=== PATIENT | male | born 1975 | race African-American/Black ===

== ENCOUNTER 2018-01-03 20:29 | Emergency (ER) | payer BC ==
[2018-01-03] MEDS ORDERED: ONDANSETRON ODT 4 MG TAB (6 TAB/ER DISP) PO PRN (20:48)
[2018-01-03] MEDS ORDERED: BUTALB/ACETAMINOPHEN/CAFFEINE 1 TAB EACH PO ONE (20:48)
--- NOTE | 2018-01-03 20:49 | ER Document Report ---
ED Medical Screen (RME) - General Chief Complaint: Headache Stated Complaint: MIGRAINE Time Seen by Provider: 01/03/18 20:47 Notes: Patient presents with migraine headache. He states normally the headache will go away with PC powders but he has had this headache for 3 days and has not gone away. He states he has had migraine headaches since he was 14 years old. He states he has never come to the hospital for a headache before. He states he never has had any kind of MRI or CT scan. TRAVEL OUTSIDE OF THE [place] IN LAST 30 DAYS: No - Related Data Allergies/Adverse Reactions: No Known Drug Allergies Adverse Reaction (Verified 10/21/15 03:17) Past Medical History - Social History Chew tobacco use (# tins/day): No Frequency of alcohol use: None Drug Abuse: None Pulmonary Medical History: Reports: Hx Bronchitis - last month Renal/ Medical History: Denies: Hx Peritoneal Dialysis Past Surgical History: Reports: Hx Oral Surgery - wisdom, Hx Orthopedic Surgery - Arthroscopic knee - Immunizations Hx Diphtheria, Pertussis, Tetanus Vaccination: Yes Physical Exam - Vital signs Vitals: Temp Pulse Resp BP Pulse Ox 98.0 F 74 16 131/83 H 96 01/03/18 20:38 01/03/18 20:38 01/03/18 20:38 01/03/18 20:38 01/03/18 20:38 Course - Vital Signs Vital signs: Temp Pulse Resp BP Pulse Ox 98.0 F 74 18 131/83 H 96 01/03/18 20:38 01/03/18 20:47 01/03/18 20:47 01/03/18 20:47 01/03/18 20:47
[2018-01-03] MEDS ORDERED: ONDANSETRON 4 MG TAB.RAPDIS ONE (20:57)
--- NOTE | 2018-01-03 21:33 | RADIOLOGY REPORT (SQ) ---
EXAM DESCRIPTION: CT HEAD WITHOUT COMPLETED DATE/TIME: 01/03/2018 9:23 pm REASON FOR STUDY: kaminski COMPARISON: None. TECHNIQUE: Axial images acquired through the brain without intravenous contrast. Images reviewed wi th bone, brain and subdural windows. Additional sagittal and coronal reconstructions were generated. Images stored on PACS. All CT scanners at this facility use dose modulation, iterative reconstruction, and/or weight based d osing when appropriate to reduce radiation dose to as low as reasonably achievable (ALARA). [facility]: Dose Right [facility]: CareDose [facility]: Dose Right [facility]: Teradose 4D [facility]: Profista RADIATION DOSE: CT Rad equipment meets quality standard of care and radiation dose reduction techniq ues were employed. CTDIvol: 53.2 mGy. DLP: 1017 mGy-cm. mGy. LIMITATIONS: None. FINDINGS: VENTRICLES: Normal size and contour. CEREBRUM: No masses. No hemorrhage. No midline shift. No evidence for acute infarction. Normal gra y/white matter differentiation. No areas of low density in the white matter. CEREBELLUM: No masses. No hemorrhage. No alteration of density. No evidence for acute infarction. EXTRAAXIAL SPACES: No fluid collections. No masses. ORBITS AND GLOBE: No intra- or extraconal masses. Normal contour of globe without masses. CALVARIUM: No fracture. PARANASAL SINUSES: No fluid or mucosal thickening. SOFT TISSUES: No mass or hematoma. OTHER: No other significant finding. IMPRESSION: NORMAL BRAIN CT WITHOUT CONTRAST. EVIDENCE OF ACUTE STROKE: NO. COMMENT: Quality ID # [id number]: Final reports with documentation of one or more dose reduction techniques (e.g., Automated exposure control, adjustment of the mA and/or kV according to patient size, use of iterative reconstruction technique) TECHNICAL DOCUMENTATION: JOB ID: [id number] [employer]- All Rights Reserved Reading location - IP/workstation name: [email or web address]
[2018-01-03] MEDS ORDERED: KETOROLAC TROMETHAMINE INJ/PF 30 MG/1 ML SDV IV ONE (21:55)
[2018-01-03] MEDS ORDERED: ONDANSETRON HCL INJ/PF 4 MG/2 ML SDV IV ONE (21:55)
[2018-01-03] MEDS ORDERED: NORMAL SALINE 1000 ML 1,000 ML IV ONE (21:55)
--- NOTE | 2018-01-03 21:58 | ER Document Report ---
ED Headache - General Chief Complaint: Headache Stated Complaint: MIGRAINE Time Seen by Provider: 01/03/18 20:47 Mode of Arrival: Ambulatory Information source: Patient TRAVEL OUTSIDE OF THE [place] IN LAST 30 DAYS: No - HPI Patient complains to provider of: Headache, "Migraine" Onset: Other - 3 days Onset was: Gradual Timing: Still present Quality of pain: Achy, Dull, Pressure, Throbbing Severity: Moderate Pain Level: 4 Associated symptoms: Nausea/vomiting Exacerbated by: Light Similar symptoms previously: Yes Recently seen / treated by doctor: No Notes: Patient is a 42-year-old male presenting to the emergency room complaining of headache 3 days, reports a history of migraines in the past but this 1 is worse than usual and will not go away with his typical treatments at home, he does report nausea with no vomiting, bright lights are bothersome, pain is not resolved after receiving p.o. meds in the emergency department, he denies any fevers today, no head injury, no neck stiffness - Related Data Allergies/Adverse Reactions: No Known Drug Allergies Adverse Reaction (Verified 10/21/15 03:17) Past Medical History - General Information source: Patient - Social History Smoking Status: Never Smoker Chew tobacco use (# tins/day): No Frequency of alcohol use: None Drug Abuse: None Family History: Reviewed & Not Pertinent Patient has suicidal ideation: No Patient has homicidal ideation: No Pulmonary Medical History: Reports: Hx Bronchitis - last month Renal/ Medical History: Denies: Hx Peritoneal Dialysis Past Surgical History: Reports: Hx Oral Surgery - wisdom, Hx Orthopedic Surgery - Arthroscopic knee - Immunizations Hx Diphtheria, Pertussis, Tetanus Vaccination: Yes Review of Systems - Review of Systems Constitutional: No symptoms reported EENT: No symptoms reported Cardiovascular: No symptoms reported Respiratory: No symptoms reported Gastrointestinal: Nausea Genitourinary: No symptoms reported Male Genitourinary: No symptoms reported Musculoskeletal: No symptoms reported Skin: No symptoms reported Hematologic/Lymphatic: No symptoms reported Neurological/Psychological: Headaches -: Yes All other systems reviewed and negative Physical Exam - Vital signs Vitals: Temp Pulse Resp BP Pulse Ox 98.0 F 74 16 131/83 H 96 01/03/18 20:38 01/03/18 20:38 01/03/18 20:38 01/03/18 20:38 04/18/18 20:38 Interpretation: Normal - General General appearance: Appears well, Alert - HEENT Head: Normocephalic, Atraumatic Eyes: Normal Pupils: PERRL - Respiratory Respiratory status: No respiratory distress Chest status: Nontender Breath sounds: Normal Chest palpation: Normal - Cardiovascular Rhythm: Regular Heart sounds: Normal auscultation Murmur: No - Abdominal Inspection: Normal Distension: No distension Bowel sounds: Normal Tenderness: Nontender Organomegaly: No organomegaly - Back Back: Normal, Nontender - Extremities General upper extremity: Normal inspection, Nontender, Normal color, Normal ROM , Normal temperature General lower extremity: Normal inspection, Nontender, Normal color, Normal ROM , Normal temperature, Normal weight bearing. No: Carmen's sign - Neurological Neuro grossly intact: Yes Cognition: Normal Orientation: AAOx4 Angléica Coma Scale Eye Opening: Spontaneous [place] Coma Scale Verbal: Oriented [place] Coma Scale Motor: Obeys Commands Angélica Coma Scale Total: 15 Speech: Normal Motor strength normal: LUE, RUE, LLE, RLE Sensory: Normal - Psychological Associated symptoms: Normal affect, Normal mood - Skin Skin Temperature: Warm Skin Moisture: Dry Skin Color: Normal Course - Re-evaluation Re-evalutation: 01/03/18 22:06 Nursing staff went to room to place IV and provide patient with IV fluids and medications, however he reports that his headache is now resolved and he wishes to be discharged home, I did evaluate patient and confirm this, he reports that his headache is now gone and he would like to go home without the IV fluids and medications, patient therefore was discharged with prescription for Zofran and butalbital, advised to drink plenty of fluids over the next few days, follow-up with a primary care provider or return if symptoms worsen, patient acknowledges understanding and agreement with this plan - Vital Signs Vital signs: Temp Pulse Resp BP Pulse Ox 98.0 F 74 18 131/83 H 96 01/03/18 20:38 01/03/18 20:47 01/03/18 20:47 01/03/18 20:47 01/03/18 20:47 - Diagnostic Test Radiology reviewed: Image reviewed, Reports reviewed Discharge - Discharge Clinical Impression: Migraine Qualifiers: Migraine type: other Status migrainosus presence: without status migrainosus Intractability: not intractable Qualified Code(s): G43.809 - Other migraine, not intractable, without status migrainosus Condition: Stable Disposition: HOME, SELF-CARE Instructions: Antinausea Medication ([facility]), Headache ([facility]) Additional Instructions: Follow up with your primary care provider in one to 2 days. Return to the emergency room immediately if symptoms worsen or any additional concerns. Prescriptions: Butalb/Acetaminophen/Caffeine [Sftmfc-Xrcwogfi-Duhy 50-325-40] 1 tab PO Q6 PRN # 14 tablet PRN Reason: Ondansetron [Zofran Odt 4 mg Tablet] 1 - 2 tab PO Q4H #10 tab.[email or web address]
[2018-01-03 22:49] VITALS: BP 132/80
== END 2018-01-03 22:49 | disposition home or self-care (01) ==
LOC: ER 20:29
DX: G43.809 Other migraine, not intractable, without status migrainosus (principal); R11.0 Nausea
CPT/HCPCS: 99284; 70450; J3490; S0119

== ENCOUNTER 2019-08-07 18:02 | Emergency (ER) | payer BC, OTHER ==
--- NOTE | 2019-08-07 19:02 | ER Document Report ---
ED Medical Screen (RME) - General Chief Complaint: Back Pain Stated Complaint: BACK PAIN, LEFT ARM PAIN Time Seen by Provider: 08/07/19 18:58 Notes: Patient is a 44-year-old male presents to the emergency department for left scapula pain. States he has had intermittent left scapula and left upper extremity pain for the last month. Patient's denying any trauma or injury. States he has presented to his primary care provider who placed him on a muscle relaxer. Patient voices "that did not do anything." During my physical exam I discussed with patient this could be muscular in nature. Patient states, "then why do I feel like this?" When asked to elaborate patient voices he just feels "generalized weakness." Patient is denying any shortness of breath or chest pain. GENERAL: Alert, interacts well. No acute distress. LUNGS: Clear to auscultation bilaterally, no wheezes, rales, or rhonchi. No respiratory distress. HEART: Regular rate and rhythm. No murmur EXTREMITIES: Moves all 4 extremities spontaneously. No edema, normal radial and dorsalis pedis pulses bilaterally. No cyanosis. BACK: no cervical, thoracic, lumbar midline tenderness. No saddle anesthesia, normal distal neurovascular exam. Generalized pain under left scapula. I have greeted and performed a rapid initial assessment of this patient. A comprehensive ED assessment and evaluation of the patient, analysis of test results and completion of the medical decision making process will be conducted by additional ED providers. I have specifically instructed the patient or family members with the patient to immediately return to any nursing staff should anything change in the patient's condition or with their chief complaint. This medical record was dictated with voice recognizing software. There may be grammatical, syntax errors that are unintended. TRAVEL OUTSIDE OF THE [place] IN LAST 30 DAYS: No - Related Data Allergies/Adverse Reactions: No Known Drug Allergies Adverse Reaction (Verified 10/21/15 03:17) Past Medical History - Social History Frequency of alcohol use: None Drug Abuse: None Pulmonary Medical History: Reports: Hx Bronchitis - last month Renal/ Medical History: Denies: Hx Peritoneal Dialysis Past Surgical History: Reports: Hx Oral Surgery - wisdom, Hx Orthopedic Surgery - Arthroscopic knee - Immunizations Hx Diphtheria, Pertussis, Tetanus Vaccination: Yes Physical Exam - Vital signs Vitals: Temp Pulse Resp BP Pulse Ox 97.8 F 71 18 136/83 H 96 08/07/19 18:16 08/07/19 18:16 08/07/19 18:16 08/07/19 18:16 08/07/19 18:16 Course - Vital Signs Vital signs: Temp Pulse Resp BP Pulse Ox 97.8 F 71 18 136/83 H 96 08/07/19 18:16 08/07/19 18:16 08/07/19 18:16 08/07/19 18:16 08/07/19 18:16
--- NOTE | 2019-08-07 19:16 | RADIOLOGY REPORT (SQ) ---
EXAM DESCRIPTION: CHEST 2 VIEWS COMPLETED DATE/TIME: 08/07/2019 7:08 pm REASON FOR STUDY: weakness COMPARISON: 10/21/2015 EXAM PARAMETERS: NUMBER OF VIEWS: two views TECHNIQUE: Digital Frontal and Lateral radiographic views of the chest acquired. RADIATION DOSE: NA LIMITATIONS: none FINDINGS: LUNGS AND PLEURA: No opacities, masses or pneumothorax. No pleural effusion. MEDIASTINUM AND HILAR STRUCTURES: No masses or contour abnormalities. HEART AND VASCULAR STRUCTURES: Heart normal size. No evidence for failure. BONES: No acute findings. HARDWARE: None in the chest. OTHER: No other significant finding. IMPRESSION: NO ACUTE RADIOGRAPHIC FINDING IN THE CHEST. TECHNICAL DOCUMENTATION: JOB ID: [id number] [employer]- All Rights Reserved Reading location - IP/workstation name: [email or web address]
[2019-08-07 19:29] LABS: ABSOLUTE BASOPHILS # (AUTO) 0.1 10^3/uL (0.0-0.2); ABSOLUTE EOSINOPHILS # (AUTO) 0.2 10^3/uL (0.0-0.6); ABSOLUTE LYMPHOCYTES (AUTO) 2.4 10^3/uL (0.5-4.7); ABSOLUTE MONOCYTES (AUTO) 0.5 10^3/uL (0.1-1.4); ABSOLUTE NEUT (AUTO) 1.6 10^3/uL (1.7-8.2); BASOPHILS % (AUTO) 1.1 % (0-2); EOSINOPHILS % (AUTO) 4.3 % (0-6); HEMATOCRIT 43.5 % (37.9-51.0); HEMOGLOBIN 14.7 g/dL (13.5-17.0); LYMPHOCYTES % (AUTO) 51.2 % (13-45); MEAN CORPUSCULAR HEMOGLOBIN 31.6 pg (27.0-33.4); MEAN CORPUSCULAR HGB CONC 33.9 g/dL (32.0-36.0); MEAN CORPUSCULAR VOLUME 93 fl (80-97); MONOCYTES % (AUTO) 9.7 % (3-13); PLATELET COUNT 305 10^3/uL (150-450); RED BLOOD COUNT 4.66 10^6/uL (4.35-5.55); RED CELL DISTRIBUTION WIDTH 13.1 % (11.5-14.0); SEGMENTED NEUTROPHILS % (AUTO) 33.7 % (42-78); TOTAL CELLS COUNTED % (AUTO) 100 %; WHITE BLOOD COUNT 4.8 10^3/uL (4.0-10.5)
[2019-08-07 19:42] LABS: ALBUMIN 4.5 g/dL (3.5-5.0); ALKALINE PHOSPHATASE 58 U/L (38-126); ANION GAP 10 (5-19); ASPARTATE AMINO TRANSFERASE 26 U/L (17-59); BILIRUBIN,DIRECT 0.1 mg/dL (0.0-0.4); BILIRUBIN,TOTAL 0.6 mg/dL (0.2-1.3); BLOOD UREA NITROGEN 15 mg/dL (7-20); CALCIUM 9.9 mg/dL (8.4-10.2); CARBON DIOXIDE 27 mmol/L (22-30); CHLORIDE 105 mmol/L (98-107); GLUCOSE 86 mg/dL (75-110); POTASSIUM 4.2 mmol/L (3.6-5.0)
[2019-08-07 19:43] LABS: APPEARANCE,URINE CLEAR; BILIRUBIN,URINE NEGATIVE (NEGATIVE); COLOR,URINE YELLOW; GLUCOSE, URINE NEGATIVE (NEGATIVE); KETONES,URINE NEGATIVE (NEGATIVE); LEUKOCYTE ESTERASE,URINE NEGATIVE (NEGATIVE); NITRITE,URINE NEGATIVE (NEGATIVE); PROTEIN,URINE NEGATIVE (NEGATIVE); URINE SPECIFIC GRAVITY 1.029
--- NOTE | 2019-08-07 20:16 | ER Document Report ---
ED General - General Chief Complaint: Back Pain Stated Complaint: BACK PAIN, LEFT ARM PAIN Time Seen by Provider: 08/07/19 18:58 Primary Care Provider: JOSE MIGUEL BROCK MD [ACTIVE STAFF] - 08/08/19 SP TOLEDO MD [Primary Care Provider] - 08/09/19 Notes: Patient is a 44-year-old male that comes to the emergency department for chief complaint of left shoulder/scapula/back pain and occasionally pain in the left chest underneath the left breast and lower rib area. He states this is been going on along with intermittent headaches for the better part of a month. He states that when it hurts in his back he feels it radiating around to the front. He also will feel pain or even tingling shooting down the left arm at that time. He states that he actually went to a chiropractor and got "an adjustment", he states that actually did help and now he has much less neck pain, back pain, and infrequent headaches, he states he just wanted to get checked out. He states his blood pressure seemed higher and earlier he felt li ghtheaded and thought his blood sugar might be elevated. He is not treated for hypertension, denies history of diabetes. He denies smoking or recreational drug use. He denies family history of CA. He is not on any current medications, he states he takes as needed muscle relaxer for his back and has not needed it recently. TRAVEL OUTSIDE OF THE [place] IN LAST 30 DAYS: No - Related Data Allergies/Adverse Reactions: No Known Drug Allergies Adverse Reaction (Verified 08/07/19 19:13) Past Medical History - General Information source: Patient - Social History Smoking Status: Never Smoker Frequency of alcohol use: None Drug Abuse: None Lives with: Family Family History: Reviewed & Not Pertinent Patient has suicidal ideation: No Patient has homicidal ideation: No Pulmonary Medical History: Reports: Hx Bronchitis - last month Renal/ Medical History: Denies: Hx Peritoneal Dialysis Past Surgical History: Reports: Hx Oral Surgery - wisdom, Hx Orthopedic Surgery - Arthroscopic knee - Immunizations Hx Diphtheria, Pertussis, Tetanus Vaccination: Yes Review of Systems - Review of Systems Constitutional: No symptoms reported EENT: No symptoms reported Cardiovascular: See HPI Respiratory: No symptoms reported Gastrointestinal: No symptoms reported Genitourinary: No symptoms reported Male Genitourinary: No symptoms reported Musculoskeletal: See HPI Skin: No symptoms reported Hematologic/Lymphatic: No symptoms reported Neurological/Psychological: No symptoms reported Physical Exam - Vital signs Vitals: Temp Pulse Resp BP Pulse Ox 97.8 F 71 18 136/83 H 96 08/07/19 18:16 08/07/19 18:16 08/07/19 18:16 08/07/19 18:16 08/07/19 18:16 - Notes Notes: GENERAL: Alert, interacts well. No acute distress. HEAD: Normocephalic, atraumatic. EYES: Pupils equal, round, and reactive to light. Extraocular movements intact. ENT: Oral mucosa moist, tongue midline. Oropharynx unremarkable. Airway patent. NECK: Full range of motion. Supple. Trachea midline. LUNGS: Clear to auscultation bilaterally, no wheezes, rales, or rhonchi. No respiratory distress. No tenderness with palpation of the chest. HEART: Regular rate and rhythm. No murmur ABDOMEN: Soft, non-tender. Non-distended. Bowel sounds present in all 4 quadrants. GENITOURINARY: Deferred EXTREMITIES: Moves all 4 extremities spontaneously. No tenderness noted or pain with range of motion noted. No edema, normal radial and dorsalis pedis pulses bilaterally. No cyanosis. BACK: no cervical, thoracic, lumbar midline tenderness. No saddle anesthesia, normal distal neurovascular exam. Moves all extremities in full range of motion. NEUROLOGICAL: Alert and oriented x3. Normal speech. Cranial nerves II through XII grossly intact. PSYCH: Normal affect, normal mood. SKIN: Warm, dry, normal turgor. No rashes or lesions noted. Course - Re-evaluation Re-evalutation: Patient has a lot of questions, he inquires about his blood sugar, his blood pressure, earlier having eye irritation, and his laboratory work-up. Patient's heart score is as follows: Heart score: History suspicious - Slightly = 0 EKG - Non-specific repolarization disturbance (LBBB, LVH,etc) = 1 Age - 45-65 = 1 Initial troponin - normal limit = 0 Risk factors - none 0, one-two 1, three or more 2 Total = 2 Chest x-ray unremarkable. Patient symptoms have also been going on for an extended length of time intermittently without any change reported to me. He denies feeling a change in his back or chest prior to arrival today. Patient was very reassured when I discussed his CBC, CMP, troponin, EKG. EKG does have right bundle branch block but does not show significant change from prior. Patient is asymptomatic at this time. Patient is self treating with BC powders and indicates his lower left rib area as the discomfort occasionally, could be gastrointestinal source, I did give him precautions in regards to this as well. Discussed options with patient. Because of his ongoing symptoms, low heart scor e, possible musculoskeletal component, and reassuring work-up at this time patient will follow-up with either cardiology referral or close with his primary care, he does have good follow-up. Patient request copy of his labs. Patient states he is ready to leave, states he will return if he worsens in any way, this was discussed. Stable at time of discharge. - Vital Signs Vital signs: Temp Pulse Resp BP Pulse Ox 97.8 F 62 14 136/90 H 98 08/07/19 18:16 08/07/19 22:00 08/07/19 22:00 08/07/19 22:00 08/07/19 22:00 - Laboratory Result Diagrams: 08/07/19 19:04 08/07/19 19:04 Laboratory results interpreted by me: 08/07/19 08/07/19 19:04 19:04 Lymph % (Auto) 51.2 H Absolute Neuts (auto) 1.6 L Seg Neutrophils % 33.7 L Urine Urobilinogen 2.0 H Urine Ascorbic Acid 40 H - EKG Interpretation by Me Additional EKG results interpreted by me: EKG shows sinus rhythm at a rate of 71, left axis deviation, borderline T-wve in lead III but no T-wave inversions or ST segment changes in consecutive leads. RBBB and LAFB. No significant change from prior. Discharge - Discharge Clinical Impression: Left shoulder pain Qualifiers: Chronicity: acute Qualified Code(s): M25.512 - Pain in left shoulder Condition: Stable Disposition: HOME, SELF-CARE Additional Instructions: Your work-up at this time is reassuring including your general labs, EKG, chest x-ray, heart enzyme. This could be musculoskeletal, however because of your lack of muscular skeletal pain today and your ongoing symptoms I recommend follow-up with the shoe maker referral closely or with your primary care for additional evaluation including possible stress test. Return if you worsen including severe worsening pain, difficulty breathing, vomiting, passing out, fever, or any other concerning symptoms. Referrals: SP TOLEDO MD [Primary Care Provider] - 08/09/19 JOSE MIGUEL BROCK MD [ACTIVE STAFF] - 08/08/19
--- NOTE | 2019-08-07 20:28 | EKG REPORT ---
SEVERITY:- ABNORMAL ECG - SINUS RHYTHM RBBB AND LAFB : Confirmed by: Jose Lopez MD 07-Aug-2019 20:27:23
[2019-08-07 22:03] VITALS: BP 136/90
== END 2019-08-07 21:58 | disposition home or self-care (01) ==
LOC: ER 18:02
DX: M25.512 Pain in left shoulder (principal); M54.9 Dorsalgia, unspecified; M54.2 Cervicalgia; R51 Headache
CPT/HCPCS: 36415; 71046; 80053; 81001; 83735; 84484; 85025; 93005; 93010; 99284

== ENCOUNTER 2020-08-17 15:10 | Emergency (ER) | payer OTHER ==
--- NOTE | 2020-08-17 15:36 | ER Document Report ---
ED Medical Screen (RME) - General Chief Complaint: Palpitations Stated Complaint: PALPITATIONS Time Seen by Provider: 08/17/20 15:28 Primary Care Provider: SP TOLEDO MD [Primary Care Provider] - Follow up as needed Mode of Arrival: Ambulatory Information source: Patient Notes: 45-year-old male presented to ED for complaint of palpitations and chest pressure. He states it feels like his is going to jump right out of his chest at times. He is alert oriented respirations regular nonlabored speaking in full sentences. He states is been going on and off since yesterday. I have reviewed his history and surgical history with him. And have updated all of his history.'s are clear bilaterally at this time. I have greeted and performed a rapid initial assessment of this patient. A comprehensive ED assessment and evaluation of the patient, analysis of test results and completion of medical decision making process will be conducted by an additional ED providers. TRAVEL OUTSIDE OF THE [place] IN LAST 30 DAYS: No - Related Data Allergies/Adverse Reactions: No Known Drug Allergies Adverse Reaction (Verified 08/07/19 19:13) Past Medical History - General Information source: Patient - Social History Cigarette use (# per day): No Frequency of alcohol use: None Drug Abuse: None Lives with: Family Family history: Reviewed & Not Pertinent - Past Medical History Cardiac Medical History: Reports: Hx Hypercholesterolemia, Hx Hypertension Pulmonary Medical History: Reports: Hx Bronchitis - last month Neurological Medical History: Reports: Hx Migraine Endocrine Medical History: Reports: Hx Diabetes Mellitus Type 2 Renal/ Medical History: Reports: None Malignancy Medical History: Reports None GI Medical History: Reports: None Musculoskeltal Medical History: Reports None, Reports Hx Musculoskeletal Deformity, Reports Hx Musculoskeletal Trauma Skin Medical History: Reports Hx Psoriasis Psychiatric Medical History: Reports: Hx Depression Traumatic Medical History: Reports: None Infectious Medical History: Reports: None Past Surgical History: Reports: Hx Oral Surgery - wisdom, Hx Orthopedic Surgery - Arthroscopic knee - Immunizations Hx Diphtheria, Pertussis, Tetanus Vaccination: Yes Physical Exam - Vital signs Vitals: Temp Pulse Resp BP Pulse Ox 98.0 F 88 16 153/70 H 100 08/17/20 15:22 08/17/20 15:22 08/17/20 15:22 08/17/20 15:22 08/17/20 15:22 Course - Vital Signs Vital signs: Temp Pulse Resp BP Pulse Ox 98.0 F 88 16 153/70 H 100 08/17/20 15:22 08/17/20 15:22 08/17/20 15:22 08/17/20 15:22 08/17/20 15:22 Doctor's Discharge - Discharge Referrals: SP TOLEDO MD [Primary Care Provider] - Follow up as needed
[2020-08-17 16:07] LABS: ABSOLUTE EOSINOPHILS # (AUTO) 0.1 10^3/uL (0.0-0.6); ABSOLUTE LYMPHOCYTES (AUTO) 2.4 10^3/uL (0.5-4.7); ABSOLUTE MONOCYTES (AUTO) 0.5 10^3/uL (0.1-1.4); ABSOLUTE NEUT (AUTO) 1.9 10^3/uL (1.7-8.2); HEMATOCRIT 43.4 % (37.9-51.0); HEMOGLOBIN 14.7 g/dL (13.5-17.0); LYMPHOCYTES % (AUTO) 48.1 % (13-45); MEAN CORPUSCULAR HEMOGLOBIN 31.2 pg (27.0-33.4); MEAN CORPUSCULAR HGB CONC 33.9 g/dL (32.0-36.0); MEAN CORPUSCULAR VOLUME 92 fl (80-97); PLATELET COUNT 286 10^3/uL (150-450); RED BLOOD COUNT 4.72 10^6/uL (4.35-5.55); RED CELL DISTRIBUTION WIDTH 12.9 % (11.5-14.0); SEGMENTED NEUTROPHILS % (AUTO) 37.9 % (42-78); TOTAL CELLS COUNTED % (AUTO) 100 %; WHITE BLOOD COUNT 4.9 10^3/uL (4.0-10.5)
--- NOTE | 2020-08-17 16:18 | RADIOLOGY REPORT (SQ) ---
EXAM DESCRIPTION: CHEST 2 VIEWS IMAGES COMPLETED DATE/TIME: 08/17/2020 4:10 pm REASON FOR STUDY: palpitation chest pressure COMPARISON: 08/07/2019 EXAM PARAMETERS: NUMBER OF VIEWS: two views TECHNIQUE: Digital Frontal and Lateral radiographic views of the chest acquired. RADIATION DOSE: NA LIMITATIONS: none FINDINGS: LUNGS AND PLEURA: No opacities, masses or pneumothorax. No pleural effusion. MEDIASTINUM AND HILAR STRUCTURES: No masses or contour abnormalities. HEART AND VASCULAR STRUCTURES: Heart normal size. No evidence for failure. BONES: No acute findings. HARDWARE: None in the chest. OTHER: No other significant finding. IMPRESSION: NO ACUTE RADIOGRAPHIC FINDING IN THE CHEST. TECHNICAL DOCUMENTATION: JOB ID: [id number] [employer]- All Rights Reserved Reading location - IP/workstation name: [email or web address]
[2020-08-17 16:25] LABS: ALBUMIN 4.7 g/dL (3.5-5.0); ALKALINE PHOSPHATASE 56 U/L (38-126); ANION GAP 10 (5-19); ASPARTATE AMINO TRANSFERASE 40 U/L (17-59); BILIRUBIN,DIRECT 0.2 mg/dL (0.0-0.4); BLOOD UREA NITROGEN 15 mg/dL (7-20); CALCIUM 9.9 mg/dL (8.4-10.2); CARBON DIOXIDE 26 mmol/L (22-30); CHLORIDE 104 mmol/L (98-107); CREATINE KINASE 767 U/L (55-170); GLUCOSE 81 mg/dL (75-110); POTASSIUM 4.8 mmol/L (3.6-5.0); TOTAL PROTEIN 7.9 g/dL (6.3-8.2)
--- NOTE | 2020-08-17 19:31 | ER Document Report ---
Entered by SIVA ANGELES SCRIBE 08/17/20 [id number] Acting as scribe for:NEELA JEWELL, DO ED General - General Chief Complaint: Palpitations Stated Complaint: PALPITATIONS Time Seen by Provider: 08/17/20 15:28 Primary Care Provider: JOSE MIGUEL BROCK MD [ACTIVE STAFF] - Follow up as needed SP TOLEDO MD [COMMUNITY BASED STAFF] - Follow up as needed Mode of Arrival: Ambulatory Information source: Patient Notes: This 45 year old male patient presents to the emergency department today with complaints of palpitations on and off for the past x2 days. Patient states x5-7 years ago he was told one of his valves is not working and has not followed up f or this. Patient reports history of HTN, HLD, and has begun visiting the gym the past month. Denies covid exposure, fever, cough, or shortness of breath. TRAVEL OUTSIDE OF THE [place] IN LAST 30 DAYS: No - Related Data Allergies/Adverse Reactions: No Known Drug Allergies Adverse Reaction (Verified 08/07/19 19:13) Past Medical History - General Information source: Patient - Social History Smoking Status: Never Smoker Cigarette use (# per day): No Frequency of alcohol use: None Drug Abuse: None Lives with: Family Family History: Reviewed & Not Pertinent - Past Medical History Cardiac Medical History: Reports: Hx Hypercholesterolemia, Hx Hypertension Pulmonary Medical History: Reports: Hx Bronchitis - last month Neurological Medical History: Reports: Hx Migraine Endocrine Medical History: Reports: Hx Diabetes Mellitus Type 2 Musculoskeletal Medical History: Reports Hx Musculoskeletal Deformity, Reports Hx Musculoskeletal Trauma Skin Medical History: Reports Hx Psoriasis Psychiatric Medical History: Reports: Hx Depression Past Surgical History: Reports: Hx Oral Surgery - wisdom, Hx Orthopedic Surgery - Arthroscopic knee - Immunizations Hx Diphtheria, Pertussis, Tetanus Vaccination: Yes Review of Systems - Review of Systems Constitutional: See HPI. denies: Fever EENT: No symptoms reported Cardiovascular: See HPI, Palpitations Respiratory: See HPI. denies: Cough, Short of breath Gastrointestinal: No symptoms reported Genitourinary: No symptoms reported Male Genitourinary: No symptoms reported Musculoskeletal: No symptoms reported Skin: No symptoms reported Hematologic/Lymphatic: No symptoms reported Neurological/Psychological: No symptoms reported -: Yes All other systems reviewed and negative Physical Exam - Vital signs Vitals: Temp Pulse Resp BP Pulse Ox 98.0 F 88 16 153/70 H 100 08/17/20 15:22 08/17/20 15:22 08/17/20 15:22 08/17/20 15:22 08/17/20 15:22 - General General appearance: Appears well, Alert - HEENT Head: Normocephalic, Atraumatic Eyes: Normal Pupils: PERRL - Respiratory Respiratory status: No respiratory distress Breath sounds: Normal Notes: Tenderness with light palpation to the chest wall and left scapula. - Cardiovascular Rhythm: Regular Heart sounds: Normal auscultation Murmur: No - Abdominal Inspection: Normal Distension: No distension Bowel sounds: Normal Tenderness: Nontender - Extremities General upper extremity: Normal inspection, Normal ROM General lower extremity: Normal inspection, Normal ROM. No: Edema - Neurological Neuro grossly intact: Yes Cognition: Normal Orientation: AAOx4 Bim Coma Scale Eye Opening: Spontaneous Bim Coma Scale Verbal: Oriented Angélica Coma Scale Motor: Obeys Commands Bim Coma Scale Total: 15 Speech: Normal Motor strength normal: LUE, RUE, LLE, RLE Sensory: Normal - Psychological Associated symptoms: Normal affect, Normal mood - Skin Skin Temperature: Warm Skin Moisture: Dry Skin Color: Normal Course - Vital Signs Vital signs: Temp Pulse Resp BP Pulse Ox 98.0 F 88 13 115/72 98 08/17/20 15:22 08/17/20 15:22 08/17/20 19:41 08/17/20 19:41 08/17/20 19:41 - Laboratory Result Diagrams: 08/17/20 15:40 08/17/20 15:40 Laboratory results interpreted by me: 08/17/20 08/17/20 15:40 15:40 Lymph % (Auto) 48.1 H Seg Neutrophils % 37.9 L Creatine Kinase 767 H Discharge - Discharge Clinical Impression: Right bundle branch block, Chest wall pain Disposition: HOME, SELF-CARE Instructions: Anti-Inflammatory Medication ([facility]), Chest Wall Pain ([facility]), Palpitations (Irregular or Rapid Heartrate) ([facility]) Additional Instructions: Call Dr. Brock for follow up. Take the medicine as directed. Please return here for chest pain, shortness of breath or other problems or concerns. Prescriptions: Ibuprofen [Motrin 600 mg Tablet] 600 mg PO TID #30 tablet Referrals: SP TOLEDO MD [COMMUNITY BASED STAFF] - Follow up as needed JOSE MIGUEL BROCK MD [ACTIVE STAFF] - Follow up as needed I personally performed the services described in the documentation, reviewed and edited the documentation which was dictated to the scribe in my presence, and it accurately records my words and actions.
[2020-08-17 19:46] VITALS: BP 115/72
--- NOTE | 2020-08-17 19:47 | EKG REPORT ---
SEVERITY:- ABNORMAL ECG - SINUS RHYTHM RBBB AND LAFB : Confirmed by: Humble George MD 17-Aug-2020 19:47:22
== END 2020-08-17 19:47 | disposition home or self-care (01) ==
LOC: ER 15:10
DX: I45.10 Unspecified right bundle-branch block (principal); R07.89 Other chest pain; R00.2 Palpitations; I10 Essential (primary) hypertension; E11.9 Type 2 diabetes mellitus without complications
CPT/HCPCS: 36415; 71046; 80053; 82550; 84484; 85025; 93005; 93010; 99285

== ENCOUNTER 2020-10-11 18:11 | Emergency (ER) | payer OTHER ==
[2020-10-11 18:29] VITALS: BP 131/79
[2020-10-11] MEDS ORDERED: METHYLPREDNISOLONE INJ 125 MG/2 ML SDV IM ONE (19:32)
--- NOTE | 2020-10-11 19:34 | ER Document Report ---
ED Medical Screen (RME) - General Chief Complaint: Neck and Upper Back Pain Stated Complaint: NECK/BACK PAIN,SWELLING Time Seen by Provider: 10/11/20 19:28 Mode of Arrival: Ambulatory Information source: Patient Notes: HPI; 45-year-old male presents to the emergency room complaining of worsening neck pain that radiates into his right arm for the past 3 days. Denies any trauma or injury. States he woke up with the pain. Complains of numbness of his right upper arm. States he was seen in urgent care yesterday and was prescribed naproxen and Flexeril which she has been taking without relief. Patient is right-handed. Denies any previous neck or arm pain. PE: Alert and oriented x3. Cervical spine is nontender to palpation. There is tenderness over the right trapezius muscle. There is painful range of motion with lateral movement to the neck. There is no obvious deformity. Lungs: Clear to auscultation without rales, rhonchi, wheezes. Heart: Regular rate rhythm without murmurs, rubs, gallops. Butcher Meat strength is equal and adequate bilaterally. Positive right radial pulse. Neurovascularly intact. I have greeted and performed a rapid initial assessment of this patient. A comprehensive ED assessment and evaluation of the patient, analysis of test results and completion of the medical decision making process will be conducted by additional ED providers. I have specifically instructed the patient or family members with the patient to immediately return to any nursing staff should anything change in the patient's condition or with their chief complaint. TRAVEL OUTSIDE OF THE [place] IN LAST 30 DAYS: No - Related Data Allergies/Adverse Reactions: No Known Drug Allergies Adverse Reaction (Verified 08/07/19 19:13) Past Medical History - Social History Family history: Reviewed & Not Pertinent - Past Medical History Cardiac Medical History: Reports: Hx Hypercholesterolemia, Hx Hypertension Pulmonary Medical History: Reports: Hx Bronchitis - last month Neurological Medical History: Reports: Hx Migraine Endocrine Medical History: Reports: Hx Diabetes Mellitus Type 2 Musculoskeltal Medical History: Reports Hx Musculoskeletal Deformity, Reports Hx Musculoskeletal Trauma Skin Medical History: Reports Hx Psoriasis Psychiatric Medical History: Reports: Hx Depression Past Surgical History: Reports: Hx Oral Surgery - wisdom, Hx Orthopedic Surgery - Arthroscopic knee - Immunizations Hx Diphtheria, Pertussis, Tetanus Vaccination: Yes Physical Exam - Vital signs Vitals: Temp Pulse Resp BP Pulse Ox 98.3 F 82 20 131/79 H 96 10/11/20 18:28 10/11/20 18:28 10/11/20 18:28 10/11/20 18:28 10/11/20 18:28 Course - Vital Signs Vital signs: Temp Pulse Resp BP Pulse Ox 98.3 F 82 20 131/79 H 96 10/11/20 18:28 10/11/20 18:28 10/11/20 18:28 10/11/20 18:28 10/11/20 18:28
--- NOTE | 2020-10-11 20:22 | RADIOLOGY REPORT (SQ) ---
EXAM DESCRIPTION: CT CERVICAL SPINE WITHOUT IV CONTRAST COMPLETED DATE/TME: 10/11/2020 19:52 CLINICAL HISTORY: 45 years, Male, Neck pain, paresthesia EXAM DESCRIPTION: CT CERVICAL SPINE WITHOUT CLINICAL HISTORY: Neck pain, paresthesia COMPARISON: None Available TECHNIQUE: Contiguous axial images of the cervical spine were obtained without the administration of intravenous contrast followed by reconstruction images. This exam was performed according to our departmental dose-optimization program, which includes automated exposure control, adjustment of the mA and/or kV according to patient size and/or use of iterative reconstruction technique. FINDINGS: There is disc height loss at C3-4 and C5-6 with anterior disc osteophyte complexes. There is no acute fracture or subluxation. Prevertebral soft tissues are within normal limits. IMPRESSION: No acute fracture or subluxation
--- OUTSIDE RECORDS SUMMARY | 2020-10-14 09:17 | XMS REPORT ---
:1975 Author Organization [facility] Address [facility] [place] [address] [place] [id number] Care Team Providers Name Role Phone Ros, nicholas Primary Care Physician Unavailable Allergies, Adverse Reactions, Alerts This patient has no known allergies or adverse reactions. Medications This patient has no known medications. Problems This patient has no known problems. Procedures This patient has no known procedures. Results Test Description Test Time Test Comments Text Results Atomic Results Result Comments SARS-CoV-2 RNA Resp Ql MARIO+probe 2020-01-13 00:00:00 Test Item Value Reference Range Comments SARS-CoV-2 RNA Resp Ql MARIO+probe Not detected [place] Covid Public [facility] Case ID: (test code = 36540-1) [id number] Social History This patient has no known social history. Vital Signs This patient has no known vital signs.
== END 2020-10-12 00:32 | disposition left against medical advice (07) ==
LOC: ER 18:11
DX: M54.2 Cervicalgia (principal); R20.0 Anesthesia of skin; I10 Essential (primary) hypertension; E11.9 Type 2 diabetes mellitus without complications; Z53.20 Procedure and treatment not carried out because of patient's decision for unspecified reasons
CPT/HCPCS: 72125; 99281

== ENCOUNTER 2020-10-13 13:26 | Emergency (ER) | payer OTHER ==
[2020-10-13 13:33] VITALS: BP 136/91
[2020-10-13] MEDS ORDERED: HYDROCODONE/ACETAMINOPHEN 5-325 MG (6 TAB/ER DISP) PO PRN (13:57)
--- NOTE | 2020-10-13 14:02 | ER Document Report ---
HPI - HPI Time Seen by Provider: 10/13/20 13:47 Pain Level: 3 - ROS Notes: 45-year-old male presents to the emergency room today pinched nerve to his right trapezius which does shoot to to his right upper arm x5 days ago. Patient was seen in the emergency room last night but left prior to being seen by main side provider. CT of the cervical spine without contrast did show some narrowing of the disc otherwise was unremarkable. Patient denies any trauma or fall. Patient states he has tried icing, was prescribed by urgent care naproxen and Flexeril which he states is not working as much. Patient states he reports pain when he moves it feels like "an electrical shock" from his right sided muscle in his back. Patient states worse with movement, better at rest. 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 States he is only applied ice at night. Has not followed up with his primary care provider. Denies any numbness or tingling down his arms or legs. Denies fevers, chills, chest pain,palpitations, shortness of breath, dyspnea, nausea, vomiting, diarrhea, abdominal pain, hematuria,blurred vision, double vision, loss of vision, speech changes, LH, dizziness, syncope, headaches, wheezing, ST, URI, neck pain, weakness, bowel or bladder dysfunction, saddle anesthesia, numbness or tingling in bilateral upper or lower extremities equally, muscle paralysis, weakness in bilateral upper or lower extremities equally or rash. Denies IV drug use. Past Medical History - General Information source: Patient - Social History Smoking Status: Never Smoker Frequency of alcohol use: None Family History: Reviewed & Not Pertinent - Past Medical History Cardiac Medical History: Reports: Hx Hypercholesterolemia, Hx Hypertension Pulmonary Medical History: Reports: Hx Bronchitis - last month Neurological Medical History: Reports: Hx Migraine Endocrine Medical History: Reports: Hx Diabetes Mellitus Type 2 Musculoskeletal Medical History: Reports Hx Musculoskeletal Deformity, Reports Hx Musculoskeletal Trauma Skin Medical History: Reports Hx Psoriasis Psychiatric Medical History: Reports: Hx Depression Past Surgical History: Reports: Hx Oral Surgery - wisdom, Hx Orthopedic Surgery - Arthroscopic knee - Immunizations Hx Diphtheria, Pertussis, Tetanus Vaccination: Yes Vertical Provider Document - CONSTITUTIONAL Agree With Documented VS: Yes Exam Limitations: No Limitations General Appearance: WD/WN Notes: MEDICATIONS: I agree with the patient medications as charted by the RN. ALLERGIES: I agree with the allergies as charted by the RN. PAST MEDICAL HISTORY/PAST SURGICAL HISTORY: Reviewed and agree as charted by RN. SOCIAL HISTORY: Reviewed and agree as charted by RN. FAMILY HISTORY: No significant familial comorbid conditions directly related to patient complaint EXAM: Reviewed vital signs as charted by RN. PHYSICAL EXAMINATION:reviewed vital signs by RN GENERAL: Well-appearing, well-nourished and in no acute distress. HEAD: Atraumatic, normocephalic. EYES: Pupils equal round and reactive to light, extraocular movements intact, sclera anicteric, conjunctiva are normal. ENT: Nares patent, oropharynx clear without exudates. Moist mucous membranes. NECK: Normal range of motion, supple without lymphadenopathy LUNGS: Breath sounds clear to auscultation bilaterally and equal. No wheezes rales or rhonchi. HEART: Regular rate and rhythm without murmurs ABDOMEN: Soft, nontender, nondistended abdomen. No guarding, no rebound. No masses appreciated. Musculoskeletal: Normal range of motion, no pitting or edema. No cyanosis. Able to reproduce pain with palpation to the right paraspinal trapezius, lateral to T1 and 2 on the right. Able to palpate a muscle mass, patient did wince with pain and stated this was the pain that brought him to the emergency room. Supervisor Varnish +2 bilaterally equally. Strength 5 out of 5 in bilateral upper extremities equally. APROM in shoulder. DTR +2 in BUE equally. negative drop arm, neer sign, shore test bilaterally. No impingement bilateral shoulders. No va scular compromise. Neck with full APROM, no cervical spinal tenderness. No tenderness over clavicles or step off noted bilaterally. Strength 5 out of 5 in bilateral upper extremities equally. NEUROLOGICAL: Cranial nerves grossly intact. Normal speech, normal gait. Normal sensory, motor exams PSYCH: Normal mood, normal affect. SKIN: Warm, Dry, normal turgor, no rashes or lesions noted. - INFECTION CONTROL TRAVEL OUTSIDE OF THE [place] IN LAST 30 DAYS: No Course - Re-evaluation Re-evalutation: 10/13/20 17:48 Afebrile vital stable no distress. Nurses notes reviewed. Advised to take medications as directed. Follow-up with compensation/benefits specialist as well as primary care provider. Do not drive, drink or operate machinery while taking medication cough sedation or impairment of cognitive function. Advised apply heat 20 minutes on 20 minutes off several times a day. Take muscle relaxers, anti-inflammatories as directed. Follow-up with primary care as well as compensation/benefits specialist as needed. after performing a Medical Screening Examination, I estimate there is LOW risk for OPEN FRACTURE, COMPARTMENT SYNDROME, DEEP VENOUS THROMBOSIS, ACUTE TENDON RUPTURE, or NEUROVASCULAR INJURY thus I consider the discharge disposition reasonable. I have reevaluated this patient multiple times and no significant life threatening changes are noted. The patient and I have discussed the diagnosis and risks, and we agree with discharging home to closely follow-up with their primary doctor or the referral orthopedist with the understanding that symptoms and presentations can change. We also discussed returning to the Emergency Department immediately if new or worsening symptoms occur. We have discussed the symptoms which are most concerning (e.g., changing or worsening pain, numbness, weakness) that necessitate immediate return - Vital Signs Vital signs: Temp Pulse Resp BP Pulse Ox 98 F 94 136/91 H 97 10/13/20 13:32 10/13/20 13:32 10/13/20 13:32 10/13/20 13:32 - Laboratory Results Critical Laboratory Results Reviewed: No Critical Results - Radiology Results Critical Radiology Results Reviewed: No Critical Results Discharge - Discharge Clinical Impression: Trapezius muscle spasm Condition: Stable Disposition: HOME, SELF-CARE Instructions: Myalagia (Muscle Pain) ([facility]), Muscle Relaxers ([facility]), Muscle Strain ([facility]) Additional Instructions: You have a right trapezius muscle spasm. This is built up lactic acid from muscle contraction. Aside from applying heat, taking muscle relaxer, naproxen, you do need to apply firm pressure to try to release the lactic acid, you can do this with a tennis ball or with finger point release from a massage therapist chiropractor etc. sure that you are taking deep breaths and breathing through when you are doing trigger point release. I also did prescribe you another anti-inflammatory such as prednisone, this will help decrease inflammation. Please do not drive, drink alcohol or operate heavy machinery while taking narcotics it can cause sedation or impairment of cognitive function. Return immediately for any new or worsening symptoms. Follow up with primary care provider, call tomorrow to make followup shawnee ointment. Prescriptions: Prednisone [Deltasone 20 mg Tablet] 3 tab PO DAILY 5 Days #15 tablet Methocarbamol [Robaxin 500 mg Tablet] 500 mg PO QID PRN #15 tablet PRN Reason: Forms: Return to Work Referrals: BULMARO AVALOS MD [COMMUNITY BASED STAFF] - Follow up as needed VIC SCHULZ DO [ACTIVE STAFF] - Follow up as needed
== END 2020-10-13 14:08 | disposition home or self-care (01) ==
LOC: ER 13:26
DX: M62.838 Other muscle spasm (principal); E78.00 Pure hypercholesterolemia, unspecified; I10 Essential (primary) hypertension; E11.9 Type 2 diabetes mellitus without complications
CPT/HCPCS: 99284